=== PATIENT | female | born 2005 | race Caucasian/White ===

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

== ENCOUNTER 2024-09-08 22:25 | Emergency (ER) | payer MEDICAID ==
[~2024-09-08] VITALS: Ht 165.1 cm; Wt 45.5 kg
[~2024-09-08 22:25] MED LIST changes: -NAPR-56 PO
[2024-09-08 22:26] VITALS: BP 115/62; PULSE 56; O2SAT 100
[2024-09-08 23:38] VITALS: RESP 18
[2024-09-08] MEDS: ketorolac trometh 15mg/ml vial 15 MG/ML ML IM ONE (23:38)
[2024-09-09 00:23] VITALS: TEMP 98.3
== END 2024-09-09 00:37 | disposition home or self-care (01) ==
LOC: ER 22:25
DX: M25.561 Pain in right knee (principal); Z88.1 Allergy status to other antibiotic agents; Z88.8 Allergy status to other drugs, medicaments and biological substances; Z98.890 Other specified postprocedural states; Z88.0 Allergy status to penicillin; Z90.49 Acquired absence of other specified parts of digestive tract
CPT/HCPCS: 73564; 96372; 99284; J1885; A6449

== ENCOUNTER 2025-07-20 14:43 | Emergency (ER) | payer MEDICAID ==
[~2025-07-20] VITALS: Ht 165.1 cm; Wt 58.0 kg
--- NOTE | 2025-07-20 14:50 | ELECTROCARDIOGRAPH REPORT ---
[facility] Test Date: 2025-07-20 Test Time: 14:48:53 Pat Name: KATELYN LENNON Department: EMERGENCY ROOM [id number] Room: Gender: F [place] Typist: DWAYNE : 2005 Requested By: SYDNIE GAYTAN Order Number: [id number] Reading MD: Dr. Louis Thomas Measurements Intervals [place] Rate: 63 P: 60 UT: 133 QRS: 88 QRSD: 110 T: 23 QT: 397 QTc: 407 Interpretive Statements Sinus arrhythmia RSR' in V1 or V2, right VCD or RVH Electronically Signed On 07-20-2025 21:37:[address] Louis Thomas Please click the below link to view image of tracing.
[2025-07-20 14:53] VITALS: TEMP 98.3
--- NOTE | 2025-07-20 15:18 | RADIOLOGY REPORT ---
CLINICAL HISTORY: CP TECHNIQUE: Single view of the chest was obtained. COMPARISON: None FINDINGS: The heart size and pulmonary vasculature are normal. The lungs are clear. IMPRESSION: NO ACUTE CARDIOPULMONARY PROCESS.
[2025-07-20] MEDS: ketorolac trometh 15mg/ml vial 15 MG/ML ML IV ONE (15:25)
[2025-07-20 15:29] LABS: MEAN PLATELET VOLUME 8.1 FL (7.4-10.4); RED CELL DISTRIBUTION WIDTH 13.0 % (11.5-14.5)
[2025-07-20 15:54] LABS: CREATININE 0.82 MG/DL (0.40-0.90); PRO BRAIN NATRIURETIC PEPTIDE 36 PG/ML (0-125); TOTAL CARBON DIOXIDE 23.4 MMOL/L (24-32); eCRCL 98 ML/MIN; eGFR 89 ML/MIN
--- NOTE | 2025-07-20 16:08 | Physician Documentation ---
History of Present Illness ~ Chief Complaint: Chest Pain Stated Complaint: CHEST PAIN Time Seen by MD: 14:49 OK to notify your PCP?: Yes Primary Medical Doctor: [facility] Source: patient Mode of Arrival: POV Exam Limitations: no limitations HPI Presents via ambulance for right-sided sharp stabbing sensation which radiates into the sternal area and around to her back which started with coughing. She reports that this pain started 4 days ago and has been quite constant. She reports it is worse with a deep breath and certain movements. She is unable to palpate the area of pain and states that the pain feels like it is deep inside. She was seen at [facility] on the and discharged home. No cardiac history. She reports that she has a history of pleurisy in his feels the same. She denies having any productive cough, shortness of breath or nausea, vomiting or diarrhea. Reports that she has had a viral upper respiratory illness over the past 2 weeks. She has not taken any medication for the pain prior to arrival. No pain medication taken prior to arrival Tetanus within 5 Years?: Yes Allergies: Coded Allergies: amoxicillin (Verified Allergy, Unknown, 09/08/24) sumatriptan (Verified Allergy, Unknown, 09/08/24) Active Prescriptions See Medication Reconciliation Form. Medication Reconciliation Scheduled Azithromycin (Azithromycin), 300 MG PO DAILY Miscellaneous Medications Home Med List (No Home Medications), (Reported) Past Medical History Past Medical History: No Pertinent History Past Surgical History: appendectomy Alcohol Use: None Drug Use: none Lives with: Mother, Father Lives In: Home Occupation: student Review of Systems All Other Systems at this time: Reviewed and Negative Physical Exam Vital Signs: RN Vital Signs have been reviewed: Yes, Temperature: 98.3, Source: Oral, Heart Rate: 64, Respiratory Rate: 17, BP: 118/67, Pulse Oximetry: 100, Weight: 58.000 Oxygen Flow Rate: 0 Pulse Oximetry Reflects: adequate oxygenation Physical Exam General: Alert, no apparent distress. HEENT: PERRL, EOMI, no injection, moist mucous membranes. Neck: Full range of motion. Respiratory: Lungs clear, no respiratory distress. Chest: No accessory muscle use. Chest wall nontender to palpation. Cardiovascular: Regular rate and rhythm, no murmurs. Gastrointestinal: Soft, nontender, nondistended. Bowels sounds present. Extremities: Normal range of motion, no deformity. Neurologic: Oriented x4. Psychiatric: Normal mood and affect. Skin: Normal color, warm and dry. No edema, no ecchymosis. Progress Results/Orders Reviewed/noted all lab results: Yes Results/Orders Completed Orders - DEMETRICE SERNA [employer] Ketorolac Trometh 15mg/Ml Vial (Toradol (07/20/25 15:10) Medications Received in ER Medications (Trade) Dose Ordered Sig/Lyubov Route PRN Reason Start Time Stop Time Status Last Admin Dose Admin (Toradol injection) 15 mg ONCE ONCE IV 07/20/25 15:10 07/20/25 15:12 DC 07/20/25 15:25 15 MG Vital Signs 07/20/25 07/20/25 07/20/25 07/20/25 14:49 14:53 14:53 14:53 Temp 98.3 98.3 Pulse 74 64 Resp 18 19 16 B/P (MAP) 124/57 118/67 (84) Pulse Ox 100 100 100 O2 Delivery Room Air* O2 Flow Rate 0 0 0 FiO2 21 21 07/20/25 07/20/25 15:25 16:33 Pulse 80 Resp 17 11 B/P (MAP) 112/66 Pulse Ox 98 Laboratory Tests Test 07/20/25 15:01 White Blood Count 5.9 Red Blood Count 4.06 L Hemoglobin 12.2 Hematocrit 35.7 Mean Corpuscular Volume 88.0 Mean Corpuscular Hemoglobin 30.1 Mean Corpuscular Hemoglobin Concent 34.2 Red Cell Distribution Width 13.0 Platelet Count 273 Mean Platelet Volume 8.1 Neutrophils (%) (Auto) 61.5 Lymphocytes (%) (Auto) 30.1 Monocytes (%) (Auto) 7.4 Eosinophils (%) (Auto) 0.2 Basophils (%) (Auto) 0.8 Neutrophils # (Auto) 3.6 Lymphocytes # (Auto) 1.8 Monocytes # (Auto) 0.4 Eosinophils # (Auto) 0.0 Basophils # (Auto) 0.0 CBC Comment Sodium Level 142 Potassium Level 4.0 Chloride Level 105 Carbon Dioxide Level 23.4 L Anion Gap 14 Blood Urea Nitrogen 14 Creatinine 0.82 Estimated GFR/1.73 m2 89 BUN/Creatinine Ratio 17.1 Glucose Level 82 Calcium Level 9.2 Troponin I High Sensitivity 4 Pro-B-Type Natriuretic Peptide 36 Albumin 4.4 Chemistry Comments EKG/XRAY/CT/US/VASC/MRI EKG : Additional Comment Electrocardiogram: as interpreted by me; sinus arrhythmia, no axis deviation, no acute ischemia, normal intervals, no pre-excitation pattern. Rate: 63 Chest X-Ray : Additional Comments Chest x-ray: as interpreted by me; no large effusion, no large infiltrate, normal mediastinum. Heart Score: Heart Score Response (Comments) Value History Slightly Suspicious 0 EKG Normal 0 Age <45 0 Risk Factors No known risk factors 0 Troponin Normal limit 0 Total 0 Medical Decision Making Additional information obtaine: old records Findings The chest pain workup was initiated by triage. EKG is unremarkable, chest x-ray is normal and blood work is reassuring. No signs of sepsis, no signs of pneumo thorax. We discussed that this could be pleurisy again based on the symptoms of the sharp stabbing sensation in the lateral right ribs which radiates to the sternum as around to her spine. I treated her with Toradol for the pain and provided reassurance that this is not coming from her heart. She reports that she had some relief of the pain after administration of medication. She did not taken anything prior to arrival. Advised to continue taking NSAIDs and this should be self-limited. Heart score 0. Differential Dx:Considerations: Include: Chest wall contusion, Myocardial contusion, Pneumothorax, Pulmonary contusion, Rib fracture, Tension pneumothorax Additional Comment Pleural effusion, cardiac tamponade Departure Disposition: 01 HOME / SELF CARE / HOMELESS Impression: Primary Impression: Pleural pain Additional Impression: Cough Condition: Stable Discharge Instructions: Nonspecific Chest Pain, Adult Additional Instructions: As discussed you have a viral illness. Unfortunately there are no specific medications we can give you to make the illness and faster. Antibiotics do not work for viral illnesses. However, you can take acetaminophen or ibuprofen to help with fevers and pain. Stay well hydrated and rested. Return to the emergency department if your fevers and chills continue to worsen after 5 days, if you develop worsening cough with thick sputum, are unable to stay hydrated, or have any new or concerning concerning symptoms. Contact your primary care provider in the next 2-3 days for re-evaluation and to make sure your symptoms are improving. Referrals: NO PRIMARY CARE PROVIDER (PCP) Education Educated: Patient Educated regarding: diagnosis, treatment, prognosis, need for follow up Additional Comment Medical Screen Exam This patient recieved a medical screening examination. After reviewing the individual's medical complaints with presenting symptoms and performing an appropriate physical examination, it was determined that no immediate life- threatening emergency medical condition is present. This individual is also not a women having contractions. Signature Scribe Signature: . Attestation: Scribed for Demetrice Sernap by Demetrice Abad NP . 07/20/25 20:13 Parts of this note were created using [employer] voice recognition software program. While efforts were made to correct any mistakes made by this voice recognition software program, nonsensical phrases may remain in this note. In addition, there may be errors and syntax, grammar, content and spelling. DEMETRICE SERNA [facility] Jul 20, 2025 16:08
[2025-07-20 16:33] VITALS: BP 112/66; PULSE 80; RESP 11; O2SAT 98
== END 2025-07-20 16:38 | disposition home or self-care (01) ==
LOC: ER 14:44
DX: R07.81 Pleurodynia (principal); R05.9 Cough, unspecified; Z88.1 Allergy status to other antibiotic agents; Z90.49 Acquired absence of other specified parts of digestive tract
CPT/HCPCS: 36415; 71045; 80048; 83880; 84484; 85025; 93005; 96374; 99285; J1885